=== PATIENT | male | born 1980 | race African-American/Black ===

== ENCOUNTER 2023-04-23 16:12 | Emergency (ER) | payer MEDICARE, OTHER ==
[~2023-04-23] VITALS: Ht 185.4 cm; Wt 102.3 kg
[2023-04-23 18:21] VITALS: TEMP 98.5
[2023-04-23 18:48] LABS: COVID AG,FIA SOURCE NASAL SWAB
[2023-04-23] MEDS ORDERED: QUET200T PO (18:56)
[2023-04-23 19:12] LABS: SARS-COV2 (COVID) ANTIGEN,FIA Negative (Negative)
[2023-04-23] MEDS ORDERED: NICOTINE 21 MG/24 HOUR PATCH TD ONE (20:00)
[2023-04-23] MEDS ORDERED: BENZTROPINE MESYLATE 2 MG TABLET PO ONE (21:45)
[2023-04-23] MEDS ORDERED: HALOPERIDOL 5 MG TABLET PO ONE (21:45)
[2023-04-23 22:03] VITALS: BP 137/98; PULSE 97; RESP 18
== END 2023-04-23 22:07 | disposition home or self-care (01) ==
LOC: EMS 16:13
DX: F20.9 Schizophrenia, unspecified (principal); F15.10 Other stimulant abuse, uncomplicated; F11.20 Opioid dependence, uncomplicated; F69 Unspecified disorder of adult personality and behavior; F17.210 Nicotine dependence, cigarettes, uncomplicated; Z20.822 Contact with and (suspected) exposure to COVID-19
CPT/HCPCS: 99285; Z7502; Z7610